=== PATIENT | female | born 1950 | race American Indian/Alaskan Native ===

== ENCOUNTER 2019-07-06 03:29 | Inpatient (IN) | payer MEDICARE ==
--- NOTE | 2019-07-06 04:38 | Emergency Department Report ---
<ALTAGRACIA RIVERA - Last Filed: 07/06/19 05:46> ED General Adult HPI - General Chief complaint: Weakness Stated complaint: LOSS OF CONSCIOUSNESS Time Seen by Provider: 07/06/19 03:46 Source: patient, EMS Mode of arrival: Ambulatory Limitations: No Limitations - History of Present Illness Initial comments: Patient presents to the emergency department via EMS with her family present for a chief complaint of difficulty arousing. Per the patient's daughter her mother had a blood transfusion yesterday at [facility] which she told them that she was having some nausea and she was given Phenergan and Benadryl. Since that time the daughter states her mom has been somnolent but arousable. -: Sudden Consistency: constant Improves with: none Worsens with: none Associated Symptoms: denies other symptoms Treatments Prior to Arrival: none - Related Data Home Medications Medication Instructions Recorded Confirmed Last Taken Aspirin [Adult Low Dose Aspirin EC] 81 mg PO DAILY 11/16/15 12/10/15 12/09/15 81mg Losartan [Cozaar] 100 mg PO QDAY 11/16/15 12/10/15 12/09/15 100mg Multivit-Min/FA/Lycopen/Lutein 1 tab PO DAILY 11/16/15 12/10/15 12/07/15 [Centrum Silver Tablet] 1 tab [place]-3/Dha/Epa/Fish Oil [Fish Oil 1 tab PO DAILY 11/16/15 12/10/15 12/09/15 [place]-3 EC 1,200 mg] 1 tab Vit D3/Folic Acid/B2/B6/B12 1 tab PO DAILY 11/16/15 12/10/15 12/09/15 [Folgard Tablet] 1 tab amLODIPine [Norvasc] 5 mg PO DAILY 11/16/15 12/10/15 12/09/15 5mg Allergies Allergy/AdvReac Type Severity Reaction Status Date / Time No Known Allergies Allergy Verified 07/26/14 22:47 ED Review of Systems Comment: All other systems reviewed and negative Constitutional: denies: chills, fever Eyes: denies: eye pain, eye discharge, vision change ENT: denies: ear pain, throat pain Respiratory: denies: cough, shortness of breath, wheezing Cardiovascular: denies: chest pain, palpitations Endocrine: no symptoms reported Gastrointestinal: denies: abdominal pain, nausea, diarrhea Genitourinary: denies: urgency, dysuria, discharge Musculoskeletal: denies: back pain, joint swelling, arthralgia Skin: denies: rash, lesions Neurological: denies: headache, weakness, paresthesias Psychiatric: denies: anxiety, depression Hematological/Lymphatic: denies: easy bleeding, easy bruising ED Past Medical Hx - Past Medical History Hx Hypertension: Yes Hx Diabetes: Yes Hx GERD: Yes Additional medical history: fibroids - Surgical History Additional Surgical History: Partial hysterectomy - Social History Smoking Status: Never Smoker Substance Use Type: None - Medications Home Medications: Home Medications Medication Instructions Recorded Confirmed Last Taken Type Aspirin [Adult Low Dose Aspirin EC] 81 mg PO DAILY 11/16/15 12/10/15 12/09/15 History 81mg Losartan [Cozaar] 100 mg PO QDAY 11/16/15 12/10/15 12/09/15 History 100mg Multivit-Min/FA/Lycopen/Lutein 1 tab PO DAILY 11/16/15 12/10/15 12/07/15 History [Centrum Silver Tablet] 1 tab [place]-3/Dha/Epa/Fish Oil [Fish Oil 1 tab PO DAILY 11/16/15 12/10/15 12/09/15 History [place]-3 EC 1,200 mg] 1 tab Vit D3/Folic Acid/B2/B6/B12 1 tab PO DAILY 11/16/15 12/10/15 12/09/15 History [Folgard Tablet] 1 tab amLODIPine [Norvasc] 5 mg PO DAILY 11/16/15 12/10/15 12/09/15 History 5mg ED Physical Exam - General Limitations: No Limitations General appearance: alert, in no apparent distress, obtunded (but easily arousable) - Head Head exam: Present: atraumatic, normocephalic - Eye Eye exam: Present: normal appearance, PERRL, EOMI - ENT ENT exam: Present: mucous membranes dry - Neck Neck exam: Present: normal inspection - Respiratory Respiratory exam: Present: normal lung sounds bilaterally. Absent: respiratory distress - Cardiovascular Cardiovascular Exam: Present: regular rate, normal rhythm. Absent: systolic murmur, diastolic murmur, rubs, gallop - GI/Abdominal GI/Abdominal exam: Present: soft, normal bowel sounds. Absent: distended, tenderness - Extremities Exam Extremities exam: Present: normal inspection - Back Exam Back exam: Present: normal inspection - Neurological Exam Neurological exam: Present: alert, oriented X3, CN II-XII intact. Absent: motor sensory deficit - Psychiatric Psychiatric exam: Present: normal affect, normal mood - Skin Skin exam: Present: warm, dry, intact, normal color. Absent: rash ED Medical Decision Making - Medical Decision Making It was noticed on the monitor that the patient's O2 sats dropped to 84% on room air. Daughter denies her mother using O2 at home ED Disposition Clinical Impression: Hypoxia, Altered mental status Disposition: DC- OP ADMIT IP TO THIS HOSP Condition: Stable Referrals: PRIMARY CARE, [Primary Care Provider] - 3-5 Days <BROCK SMITH - Last Filed: 07/06/19 14:51> ED Review of Systems ROS: Stated complaint: LOSS OF CONSCIOUSNESS Other details as noted in HPI ED Course Vital Signs 07/06/19 07/06/19 07/06/19 04:00 05:45 06:00 Temperature 98.4 F Pulse Rate 86 85 84 Respiratory 16 19 15 Rate Blood Pressure 140/81 140/81 Blood Pressure [Right] O2 Sat by Pulse 84 97 99 Oximetry 07/06/19 07/06/19 07/06/19 06:15 06:30 06:48 Temperature Pulse Rate 85 88 85 Respiratory 17 18 22 Rate Blood Pressure 147/94 147/94 146/90 Blood Pressure [Right] O2 Sat by Pulse 98 98 97 Oximetry 07/06/19 07/06/19 07/06/19 07:45 08:49 11:03 Temperature Pulse Rate 88 85 85 Respiratory 20 18 16 Rate Blood Pressure Blood Pressure 149/87 146/90 156/92 [Right] O2 Sat by Pulse 92 94 97 Oximetry 07/06/19 07/06/19 12:15 13:55 Temperature Pulse Rate 80 78 Respiratory 16 14 Rate Blood Pressure Blood Pressure 148/80 145/88 [Right] O2 Sat by Pulse 94 95 Oximetry - Reevaluation(s) Reevaluation #1: 07/06/19 14:48 I discussed the patient with Evelyne from chemistry lab about the delaying chemistry results. Evelyne stated that she is having trouble unwinding her chemistry due to high viscosity of the blood. She stated that she is waiting for a reagent from [facility]. ED Medical Decision Making - Lab Data Result diagrams: 07/06/19 12:51 - Medical Decision Making Ms Ortiz is 69 years old with a recent diagnosis of multiple myeloma. Patient signout to me by my colleague Dr. Rivera .Patient presents to the emergency department via EMS with her family present with a chief complaint of difficulty arousing. Per the patient's daughter her mother had a blood transfusion yesterday at [facility] which she told them that she was having some nausea and she was given Phenergan and Benadryl. Since that time the daughter states her mom has been somnolent but arousable. Patient evaluated by me multiple times. Patient is drowsy but able to answer question appropriately. Vital signs remained stable with oxygen saturation above 95% on 4 L of oxygen. Laboratory personnel having difficulty resulting how blood work due to high viscosity of her blood. I discussed the patient with Eevlyne from chemistry lab about the delaying chemistry results. Evelyne stated that she is having trouble unwinding her chemistry due to high viscosity of the blood. She stated that she is waiting for a reagent from [facility]. I discussed the patient with Dr. Campa for admission. Critical care attestation.: If time is entered above; I have spent that time in minutes in the direct care of this critically ill patient, excluding procedure time. ED Disposition Is pt being admited?: Yes
--- NOTE | 2019-07-06 05:48 | Cat Scan Report ---
CT HEAD WITHOUT CONTRAST INDICATION: ams TECHNIQUE: Axial slices were obtained through the head. Coronal and sagittal reformatted images were obtained. COMPARISON: None available. FINDINGS: There is no intracranial hemorrhage or extra-axial fluid collection. Ventricles, basilar cisterns, an d sulci appear within normal limits for age. There is no mass lesion or midline shift. No acute everette torial infarct is identified. Bone windows demonstrate no acute osseous abnormality. There is a small mucous retention cyst in the frontal sinus and small mucous retention cyst in the sphenoid sinus. TECHNIQUE: All CT scans at this facility use dose modulation, iterative reconstruction, automated ex posure control, weight based dosing, when appropriate, to reduce radiation dose to as low as reasonab ly achievable. IMPRESSION: 1. No acute intracranial abnormality. Signer Name: Larry Samuels MD Signed: 07/06/2019 5:44 AM Workstation Name: [id number]
--- NOTE | 2019-07-06 05:51 | XRay Report ---
CHEST 1 VIEW INDICATION / CLINICAL INFORMATION: hypoxia. COMPARISON: 11/17/2015 FINDINGS: SUPPORT DEVICES: None. HEART / MEDIASTINUM: There is prominence of the cardiac silhouette. There is prominence of the right hilum which is likely vascular LUNGS / PLEURA: There is bilateral venous congestion. There is bilateral pulmonary edema.. No pneumo thorax. ADDITIONAL FINDINGS: No significant additional findings. IMPRESSION: 1. There is bilateral pulmonary edema and venous congestion. There is prominence the cardiac silhouet te. No pneumothorax is seen. Right hilar prominence is likely vascular. Follow-up PA and lateral chest radiograph is recommended t o reevaluate in the next several weeks. Signer Name: Larry Samuels MD Signed: 07/06/2019 5:47 AM Workstation Name: [id number]
[2019-07-06 07:59] LABS: Partial Thromboplastin Time 42.4 Sec. (24.2-36.6)
[2019-07-06 08:05] LABS: INR 1.61 (0.87-1.13)
[2019-07-06 13:52] LABS: Hematocrit 23.4 % (30.3-42.9); Hemoglobin 7.6 gm/dl (10.1-14.3); Mean Corpuscular HGB Conc 33 % (30-34); Mean Corpuscular Volume 95 fl (79-97); Mean Platelet Volume 7.7 fl (6-12); Platelet Count 24 K/mm3 (140-440); Red Blood Count 2.47 M/mm3 (3.65-5.03); Red Cell Distribution Width 19.4 % (13.2-15.2)
[2019-07-06 15:22] LABS: Bacteria,Urine 2+ /HPF (Negative); Bilirubin,Urine NEG (Negative); Blood,Urine LG (Negative); Color,Urine Red (Yellow); Mucus,Urine FEW /HPF; Urobilinogen,Urine < 2.0 mg/dL (<2.0)
[2019-07-06 15:27] LABS: RBC,Urine > 182.0 /HPF (0.0-6.0)
[2019-07-06 15:43] LABS: Basophils % (Manual) 0 % (0.0-1.8); Eosinophils % (Manual) 0 % (0.0-4.3); Total Cells Counted 100
[2019-07-06 15:49] LABS: Anisocytosis 1+; Hypochromasia 2+; Macrocytosis 1+
[2019-07-06 15:52] LABS: Platelet Estimate Appears Decreased
--- NOTE | 2019-07-06 16:33 | History and Physical Report ---
History of Present Illness Date of examination: 07/06/19 Date of admission: 07/06/19 Chief complaint: Altered sensorium for one day History of present illness: Patient presents to the emergency department via EMS with her family present for a chief complaint of difficulty arousing. Per the patient's daughter her mother had a blood transfusion yesterday at [facility] . She had some nausea and was given Phenergan and Benadryl. Since that time the daughter states her mom has been somnolent but arousable.Patient gets blood transfusions for recurrent anemia.Patient lethargic but easily arosable. patient's O2 sats dropped to 84% on room air. Daughter denies her mother using O2 at home Past Medical History Hypertension Diabetes GERD Fibroids MM?? Surgical History Partial hysterectomy Social History Smoking Status: Never Smoker Substance Use Type: None Family History Htn Medications Home Medications: Home Medications Medication Instructions Recorded Confirmed Last Taken Type Aspirin [Adult Low Dose Aspirin EC] 81 mg PO DAILY 11/16/15 12/10/15 12/09/15 History 81mg Losartan [Cozaar] 100 mg PO QDAY 11/16/15 12/10/15 12/09/15 History 100mg Multivit-Min/FA/Lycopen/Lutein 1 tab PO DAILY 11/16/15 12/10/15 12/07/15 History [Centrum Silver Tablet] 1 tab [place]-3/Dha/Epa/Fish Oil [Fish Oil 1 tab PO DAILY 11/16/15 12/10/15 12/09/15 History [place]-3 EC 1,200 mg] 1 tab Vit D3/Folic Acid/B2/B6/B12 1 tab PO DAILY 11/16/15 12/10/15 12/09/15 History [Folgard Tablet] 1 tab amLODIPine [Norvasc] 5 mg PO DAILY 11/16/15 12/10/15 12/09/15 History 5mg Review of Systems Comment: All other systems reviewed and negative Constitutional: denies: chills, fever Eyes: denies: eye pain, eye discharge, vision change ENT: denies: ear pain, throat pain Respiratory: denies: cough, shortness of breath, wheezing Cardiovascular: denies: chest pain, palpitations Endocrine: no symptoms reported Gastrointestinal: denies: abdominal pain, nausea, diarrhea Genitourinary: denies: urgency, dysuria, discharge Musculoskeletal: denies: back pain, joint swelling, arthralgia Skin: denies: rash, lesions Neurological: denies: headache, weakness, paresthesias Psychiatric: denies: anxiety, depression Hematological/Lymphatic: denies: easy bleeding, easy bruising Medications and Allergies Allergies Allergy/AdvReac Type Severity Reaction Status Date / Time No Known Allergies Allergy Verified 07/26/14 22:47 Home Medications Medication Instructions Recorded Confirmed Last Taken Type Aspirin [Adult Low Dose Aspirin EC] 81 mg PO DAILY 11/16/15 07/06/19 12/09/15 History 81mg Losartan [Cozaar] 100 mg PO QDAY 11/16/15 07/06/19 12/09/15 History 100mg Multivit-Min/FA/Lycopen/Lutein 1 tab PO DAILY 11/16/15 07/06/19 12/07/15 History [Centrum Silver Tablet] 1 tab [place]-3/Dha/Epa/Fish Oil [Fish Oil 1 tab PO DAILY 11/16/15 07/06/19 12/09/15 History [place]-3 EC 1,200 mg] 1 tab Vit D3/Folic Acid/B2/B6/B12 1 tab PO DAILY 11/16/15 07/06/19 12/09/15 History [Folgard Tablet] 1 tab amLODIPine [Norvasc] 5 mg PO DAILY 11/16/15 07/06/19 12/09/15 History 5mg Exam - Constitutional Vitals: Temp Pulse Resp BP Pulse Ox 98.4 F 82 17 143/88 93 07/06/19 04:00 07/06/19 15:08 07/06/19 15:08 07/06/19 15:08 07/06/19 15:08 General appearance: Present: no acute distress, well-nourished - EENT Eyes: Present: PERRL ENT: hearing intact, clear oral mucosa - Neck Neck: Present: supple, normal ROM - Respiratory Respiratory effort: normal Respiratory: bilateral: CTA - Cardiovascular Heart rate: 78 Rhythm: regular Heart Sounds: Present: S1 & S2. Absent: rub, click - Extremities Extremities: no ischemia, pulses intact, pulses symmetrical, No edema Peripheral Pulses: within normal limits - Abdominal General gastrointestinal: Present: soft, non-tender, non-distended, normal bowel sounds Female genitourinary: Present: normal - Integumentary Integumentary: Present: clear, warm, dry - Musculoskeletal Musculoskeletal: generalized weakness - Psychiatric Psychiatric: other (Lethargic) - Neurologic Neurologic: CNII-XII intact, moves all extremities - Allied Health Allied health notes reviewed: nursing, case management Results - Labs CBC & Chem 7: 07/06/19 12:51 Labs: Laboratory Last Values WBC 4.0 K/mm3 (4.5-11.0) L 07/06/19 12:51 RBC 2.47 M/mm3 (3.65-5.03) L 07/06/19 12:51 Hgb 7.6 gm/dl (10.1-14.3) L 07/06/19 12:51 Hct 23.4 % (30.3-42.9) L 07/06/19 12:51 MCV 95 fl (79-97) 07/06/19 12:51 MCH 31 pg (28-32) 07/06/19 12:51 MCHC 33 % (30-34) 07/06/19 12:51 RDW 19.4 % (13.2-15.2) H 07/06/19 12:51 Plt Count 24 K/mm3 (140-440) L 07/06/19 12:51 Lymph % (Auto) Etcher Machine 07/06/19 12:51 [place] % (Auto) Etcher Machine 07/06/19 12:51 Eos % (Auto) Etcher Machine 07/06/19 12:51 Baso % (Auto) Etcher Machine 07/06/19 12:51 Lymph # Etcher Machine 07/06/19 12:51 [place] # Etcher Machine 07/06/19 12:51 Eos # Etcher Machine 07/06/19 12:51 Baso # Etcher Machine 07/06/19 12:51 Add Manual Diff Complete 07/06/19 12:51 Total Counted 100 07/06/19 12:51 Seg Neutrophils % Etcher Machine 07/06/19 12:51 Seg Neuts % (Manual) 74.0 % (40.0-70.0) H 07/06/19 12:51 0 % 07/06/19 12:51 20.0 % (13.4-35.0) 07/06/19 12:51 Reactive Lymphs % (Man) 0 % 07/06/19 12:51 6.0 % (0.0-7.3) 07/06/19 12:51 0 % (0.0-4.3) 07/06/19 12:51 0 % (0.0-1.8) 07/06/19 12:51 0 % 07/06/19 12:51 0 % 07/06/19 12:51 0 % 07/06/19 12:51 0 % 07/06/19 12:51 Nucleated RBC % Not Reportable 07/06/19 12:51 Seg Neutrophils # Etcher Machine 07/06/19 12:51 Seg Neutrophils # Man 3.0 K/mm3 (1.8-7.7) 07/06/19 12:51 Band Neutrophils # 0.0 K/mm3 07/06/19 12:51 0.8 K/mm3 (1.2-5.4) L 07/06/19 12:51 Abs React Lymphs (Man) 0.0 K/mm3 07/06/19 12:51 0.2 K/mm3 (0.0-0.8) 07/06/19 12:51 0.0 K/mm3 (0.0-0.4) 07/06/19 12:51 0.0 K/mm3 (0.0-0.1) 07/06/19 12:51 0.0 K/mm3 07/06/19 12:51 0.0 K/mm3 07/06/19 12:51 0.0 K/mm3 07/06/19 12:51 Blast Cells # 0.0 K/mm3 07/06/19 12:51 Hypersegmented Neuts Not Reportable 07/06/19 12:51 Hyposegmented Neuts Not Reportable 07/06/19 12:51 Hypogranular Neuts Not Reportable 07/06/19 12:51 Not Reportable 07/06/19 12:51 Not Reportable 07/06/19 12:51 Not Reportable 07/06/19 12:51 Not Reportable 07/06/19 12:51 Not Reportable 07/06/19 12:51 Not Reportable 07/06/19 12:51 Appears decreased 07/06/19 12:51 Not Reportable 07/06/19 12:51 Plt Clumps, EDTA Not Reportable 07/06/19 12:51 Not Reportable 07/06/19 12:51 Not Reportable 07/06/19 12:51 Not Reportable 07/06/19 12:51 Plt Morphology Comment Not Reportable 07/06/19 12:51 RBC Morphology Not Reportable 07/06/19 12:51 Dimorphic RBCs Not Reportable 07/06/19 12:51 Not Reportable 07/06/19 12:51 2+ 07/06/19 12:51 Not Reportable 07/06/19 12:51 1+ 07/06/19 12:51 Not Reportable 07/06/19 12:51 1+ 07/06/19 12:51 Not Reportable 07/06/19 12:51 Not Reportable 07/06/19 12:51 Not Reportable 07/06/19 12:51 Not Reportable 07/06/19 12:51 Not Reportable 07/06/19 12:51 Not Reportable 07/06/19 12:51 Not Reportable 07/06/19 12:51 Not Reportable 07/06/19 12:51 Not Reportable 07/06/19 12:51 Not Reportable 07/06/19 12:51 Not Reportable 07/06/19 12:51 Not Reportable 07/06/19 12:51 Not Reportable 07/06/19 12:51 Acanthocytes (Spur) Not Reportable 07/06/19 12:51 Rouleaux 2+ 07/06/19 12:51 Not Reportable 07/06/19 12:51 Not Reportable 07/06/19 12:51 Not Reportable 07/06/19 12:51 Not Reportable 07/06/19 12:51 Hem Pathologist Commnt Sent to pathology 07/06/19 12:51 PT 18.8 Sec. (12.2-14.9) H 07/06/19 07:18 INR 1.61 (0.87-1.13) H 07/06/19 07:18 APTT 42.4 Sec. (24.2-36.6) H 07/06/19 07:18 935.80 ng/mlDDU (0-234) H 07/06/19 07:18 POC ABG pH 7.427 (7.35-7.45) 07/06/19 05:24 POC ABG pCO2 31.7 (35-45) L 07/06/19 05:24 POC ABG pO2 59 (80-105) L 07/06/19 05:24 POC ABG HCO3 20.8 (22-26 mml/L) 07/06/19 05:24 POC ABG Total CO2 22 (23-27mmol/L) 07/06/19 05:24 POC ABG O2 Sat 91 07/06/19 05:24 POC ABG Base Excess -4 ((-2) - (+3)mmol/L) 07/06/19 05:24 21 % 07/06/19 05:24 Red (Yellow) 07/06/19 14:47 Cloudy (Clear) 07/06/19 14:47 5.0 (5.0-7.0) 07/06/19 14:47 Ur Specific Harmony 1.013 (1.003-1.030) 07/06/19 14:47 100 mg/dl mg/dL (Negative) 07/06/19 14:47 Neg mg/dL (Negative) 07/06/19 14:47 Neg mg/dL (Negative) 07/06/19 14:47 Lg (Negative) 07/06/19 14:47 Neg (Negative) 07/06/19 14:47 Neg (Negative) 07/06/19 14:47 < 2.0 mg/dL (<2.0) 07/06/19 14:47 Ur Leukocyte Esterase Tr (Negative) 07/06/19 14:47 22.0 /HPF (0.0-6.0) H 07/06/19 14:47 > 182.0 /HPF (0.0-6.0) 07/06/19 14:47 U Epithel Cells (Auto) 1.0 /HPF (0-13.0) 07/06/19 14:47 2+ /HPF (Negative) 07/06/19 14:47 Few /HPF 07/06/19 14:47 3+ /HPF 07/06/19 14:47 - Imaging and Cardiology EKG: report reviewed Chest x-ray: report reviewed Imaging and Cardiology: CXR IMPRESSION: 1. There is bilateral pulmonary edema and venous congestion. There is prominence the cardiac silhouette. Assessment and Plan Advance Directives: Yes (Full code) VTE prophylaxis?: Chemical Plan of care discussed with patient/family: Yes - Patient Problems (1) Acute respiratory failure Current Visit: Yes Status: Acute Qualifiers: Respiratory failure complication: hypoxia Qualified Code(s): J96.01 - Acute respiratory failure with hypoxia Plan to address problem: Sec to Pulmonary venous congestion Lasix x1 dose Probably sec to Blood transfusion and volume overload No history of CHF ECHO for EF (2) Acute encephalopathy Current Visit: Yes Status: Acute Plan to address problem: Secondary to Benadryl and Phenergan (3) HTN (hypertension) Current Visit: Yes Status: Chronic Qualifiers: Hypertension type: essential hypertension Qualified Code(s): I10 - Essential (primary) hypertension Plan to address problem: Cont antihypertensives (4) T2DM (type 2 diabetes mellitus) Current Visit: Yes Status: Chronic Qualifiers: Diabetes mellitus oil heaterman insulin use: unspecified oil heaterman insulin use status Plan to address problem: Coverage for now Ceck A1c (5) Anemia Current Visit: Yes Status: Acute Qualifiers: Anemia type: unspecified type Qualified Code(s): D64.9 - Anemia, unspecified Plan to address problem: Transfuse one unit of PRBC (6) DVT prophylaxis Current Visit: Yes Status: Acute Plan to address problem: On Lovenox and GI prophylaxis
[2019-07-06] MEDS ORDERED: SODIUM CHLORIDE FLUSH SYRINGE 10 ML IV PRN ×2 (16:40→16:41)
[2019-07-06] MEDS ORDERED: TYLENOL PO PRN ×2 (16:40→16:41)
[2019-07-06] MEDS ORDERED: ZOFRAN IV PRN ×2 (16:40→16:41)
[2019-07-06] MEDS ORDERED: D5NS 1,000 ML IV SCH (17:00)
[2019-07-06] MEDS: ROCEPHIN/NS 1 GM/50 ML 1 GM/50 ML BAG IV SCH (17:00)
[2019-07-06] MEDS ORDERED: NACL 0.9% 500 ML 500 ML IV ONE (17:00)
[2019-07-06] MEDS: DUONEB *Not for PRN Use IH SCH (21:32)
[2019-07-06] MEDS ORDERED: SODIUM CHLORIDE FLUSH SYRINGE 10 ML IV SCH (22:00)
[2019-07-06] MEDS: SODIUM CHLORIDE FLUSH SYRINGE 10 ML IV SCH (22:07)
--- NOTE | 2019-07-07 07:37 | Progress Note ---
Assessment and Plan Assessment and plan: Patient is a 69 yo woman with a history of hypertension, DM type 2, GERD and unspecific Anemia with recurrent blood transfusions who presents with AMS/difficulty arousing. Per the patient's daughter her mother had a blood transfusion a day prior to coming here at [facility] . She had some nausea and was given Phenergan and Benadryl. Since that time the daughter states her mom has been somnolent but arousable.Patient gets blood transfusions for recurrent anemia.Patient lethargic but easily arosable. patient's O2 sats dropped to 84% on room air. Daughter denies her mother using O2 at home * CXR IMPRESSION: 1. There is bilateral pulmonary edema and venous congestion. There is prominence the cardiac silhouette. Acute hypoxice respiratory failure with p.edema: treated with iv lasix, check ECHO Acute metabolic encephalopathy HTN (hypertension), Cont antihypertensives T2DM (type 2 diabetes mellitus): SSI Coverage for now, Ceck A1c Pulmonary edema, suspect acute heart failure, diastolic: treat with iv lasix Pancytopenia with plt 24 and anemia: stat CMP, consulted Heme/Onc Severe thrombocytopenia: consulted Heme/onc UTI: on iv rocephin Severe malnutrition: consult mold filling operator Hypercalcemia: consulted Heme/Onc Hypernatremia: consulted Communication Equipment Mechanic Hypokalemia: replete and monitor cmp daily CCT 33 minutes I ordered stat CMP History Interval history: Patient was seen and examined. Follow-up on current diagnosis of AMS and hypoxic. No overnight events reported to me. Patient denies any chest pain, shortness breath, nausea/vomiting or severe headaches. Imaging, nursing note, chart, labs and old chart reviewed. Discussed with patient. Patient was shwetaa alvaro. After I introduced myself, I asked her the reason she had blood transfusion. She rudely stated, "I don't know, you tell me, you're the doctor." This is my first time meeting patient. Hospitalist Physical - Physical exam Narrative exam: Gen: WDWN, NAD, Awake, Alert, Orientated HEENT: NCAT, EOMI, PERRL, OP Clear Neck: supple, no adenopathy, no thyromegaly, no JVD CVS/Heart: RRR, normal S1S2, pulses present bilaterally Chest/Lungs: diminished B, Symmetrical chest expansion, good air entry bilaterally GI/Abdomen: soft, NTND, good bowel sounds, no guarding or rebound /Bladder: no suprapubic tenderness, no CVA or paraspinal tenderness Extermity/Skin: +ble leg edema, no obvious rash MSK: FROM x 4 Neuro: CN 2-12 grossly intact, no new focal deficits Psych: rude - Constitutional Vitals: Temp Pulse Resp BP Pulse Ox 97.7 F 83 18 140/82 85 07/07/19 01:46 07/07/19 01:46 07/07/19 01:46 07/07/19 01:46 07/07/19 01:46 General appearance: Present: no acute distress, well-nourished Results - Labs CBC & Chem 7: 07/07/19 06:56 07/07/19 07:04 Labs: Laboratory Last Values WBC 4.0 K/mm3 (4.5-11.0) L 07/06/19 12:51 RBC 2.47 M/mm3 (3.65-5.03) L 07/06/19 12:51 Hgb 7.6 gm/dl (10.1-14.3) L 07/06/19 12:51 Hct 23.4 % (30.3-42.9) L 07/06/19 12:51 MCV 95 fl (79-97) 07/06/19 12:51 MCH 31 pg (28-32) 07/06/19 12:51 MCHC 33 % (30-34) 07/06/19 12:51 RDW 19.4 % (13.2-15.2) H 07/06/19 12:51 Plt Count 24 K/mm3 (140-440) L 07/06/19 12:51 Lymph % (Auto) Assistant Head Cashier 07/06/19 12:51 [place] % (Auto) Assistant Head Cashier 07/06/19 12:51 Eos % (Auto) Assistant Head Cashier 07/06/19 12:51 Baso % (Auto) Assistant Head Cashier 07/06/19 12:51 Lymph # Assistant Head Cashier 07/06/19 12:51 [place] # Assistant Head Cashier 07/06/19 12:51 Eos # Assistant Head Cashier 07/06/19 12:51 Baso # Assistant Head Cashier 07/06/19 12:51 Add Manual Diff Complete 07/06/19 12:51 Total Counted 100 07/06/19 12:51 Seg Neutrophils % Assistant Head Cashier 07/06/19 12:51 Seg Neuts % (Manual) 74.0 % (40.0-70.0) H 07/06/19 12:51 0 % 07/06/19 12:51 20.0 % (13.4-35.0) 07/06/19 12:51 Reactive Lymphs % (Man) 0 % 07/06/19 12:51 6.0 % (0.0-7.3) 07/06/19 12:51 0 % (0.0-4.3) 07/06/19 12:51 0 % (0.0-1.8) 07/06/19 12:51 0 % 07/06/19 12:51 0 % 07/06/19 12:51 0 % 07/06/19 12:51 0 % 07/06/19 12:51 Nucleated RBC % Not Reportable 07/06/19 12:51 Seg Neutrophils # Assistant Head Cashier 07/06/19 12:51 Seg Neutrophils # Man 3.0 K/mm3 (1.8-7.7) 07/06/19 12:51 Band Neutrophils # 0.0 K/mm3 07/06/19 12:51 0.8 K/mm3 (1.2-5.4) L 07/06/19 12:51 Abs React Lymphs (Man) 0.0 K/mm3 07/06/19 12:51 0.2 K/mm3 (0.0-0.8) 07/06/19 12:51 0.0 K/mm3 (0.0-0.4) 07/06/19 12:51 0.0 K/mm3 (0.0-0.1) 07/06/19 12:51 0.0 K/mm3 07/06/19 12:51 0.0 K/mm3 07/06/19 12:51 0.0 K/mm3 07/06/19 12:51 Blast Cells # 0.0 K/mm3 07/06/19 12:51 Hypersegmented Neuts Not Reportable 07/06/19 12:51 Hyposegmented Neuts Not Reportable 07/06/19 12:51 Hypogranular Neuts Not Reportable 07/06/19 12:51 Not Reportable 07/06/19 12:51 Not Reportable 07/06/19 12:51 Not Reportable 07/06/19 12:51 Not Reportable 07/06/19 12:51 Not Reportable 07/06/19 12:51 Not Reportable 07/06/19 12:51 Appears decreased 07/06/19 12:51 Not Reportable 07/06/19 12:51 Plt Clumps, EDTA Not Reportable 07/06/19 12:51 Not Reportable 07/06/19 12:51 Not Reportable 07/06/19 12:51 Not Reportable 07/06/19 12:51 Plt Morphology Comment Not Reportable 07/06/19 12:51 RBC Morphology Not Reportable 07/06/19 12:51 Dimorphic RBCs Not Reportable 07/06/19 12:51 Not Reportable 07/06/19 12:51 2+ 07/06/19 12:51 Not Reportable 07/06/19 12:51 1+ 07/06/19 12:51 Not Reportable 07/06/19 12:51 1+ 07/06/19 12:51 Not Reportable 07/06/19 12:51 Not Reportable 07/06/19 12:51 Not Reportable 07/06/19 12:51 Not Reportable 07/06/19 12:51 Not Reportable 07/06/19 12:51 Not Reportable 07/06/19 12:51 Not Reportable 07/06/19 12:51 Not Reportable 07/06/19 12:51 Not Reportable 07/06/19 12:51 Not Reportable 07/06/19 12:51 Not Reportable 07/06/19 12:51 Not Reportable 07/06/19 12:51 Not Reportable 07/06/19 12:51 Acanthocytes (Spur) Not Reportable 07/06/19 12:51 Rouleaux 2+ 07/06/19 12:51 Not Reportable 07/06/19 12:51 Not Reportable 07/06/19 12:51 Not Reportable 07/06/19 12:51 Not Reportable 07/06/19 12:51 Hem Pathologist Commnt Sent to pathology 07/06/19 12:51 PT 18.8 Sec. (12.2-14.9) H 07/06/19 07:18 INR 1.61 (0.87-1.13) H 07/06/19 07:18 APTT 42.4 Sec. (24.2-36.6) H 07/06/19 07:18 935.80 ng/mlDDU (0-234) H 07/06/19 07:18 POC ABG pH 7.427 (7.35-7.45) 07/06/19 05:24 POC ABG pCO2 31.7 (35-45) L 07/06/19 05:24 POC ABG pO2 59 (80-105) L 07/06/19 05:24 POC ABG HCO3 20.8 (22-26 mml/L) 07/06/19 05:24 POC ABG Total CO2 22 (23-27mmol/L) 07/06/19 05:24 POC ABG O2 Sat 91 07/06/19 05:24 POC ABG Base Excess -4 ((-2) - (+3)mmol/L) 07/06/19 05:24 21 % 07/06/19 05:24 Red (Yellow) 07/06/19 14:47 Cloudy (Clear) 07/06/19 14:47 5.0 (5.0-7.0) 07/06/19 14:47 Ur Specific [place] 1.013 (1.003-1.030) 07/06/19 14:47 100 mg/dl mg/dL (Negative) 07/06/19 14:47 Neg mg/dL (Negative) 07/06/19 14:47 Neg mg/dL (Negative) 07/06/19 14:47 Lg (Negative) 07/06/19 14:47 Neg (Negative) 07/06/19 14:47 Neg (Negative) 07/06/19 14:47 < 2.0 mg/dL (<2.0) 07/06/19 14:47 Ur Leukocyte Esterase Tr (Negative) 07/06/19 14:47 22.0 /HPF (0.0-6.0) H 07/06/19 14:47 > 182.0 /HPF (0.0-6.0) 07/06/19 14:47 U Epithel Cells (Auto) 1.0 /HPF (0-13.0) 07/06/19 14:47 2+ /HPF (Negative) 07/06/19 14:47 Few /HPF 07/06/19 14:47 3+ /HPF 07/06/19 14:47 Blood Type O POSITIVE 07/06/19 Unknown Antibody Screen Positive 07/06/19 Unknown Crossmatch See Detail 07/06/19 Unknown Active Medications - Current Medications Current Medications: Generic Name Dose Route Start Last Admin Trade Name Freq PRN Reason Stop Dose Admin Acetaminophen 650 mg 07/06/19 16:40 Tylenol PO Q4H PRN Pain MILD(1-3)/Fever >100.5/ALTMAN Albuterol/Ipratropium 1 ampul 07/06/19 20:00 07/06/19 21:32 Duoneb *Not For Prn Use* IH 1 ampul QIDRT JESUS Administration Furosemide 40 mg 07/07/19 07:00 Lasix IV Q24H JESUS Dextrose/Sodium Chloride 1,000 mls @ 100 mls/hr 07/06/19 17:00 07/07/19 03:07 D5ns IV 100 mls/hr DIRECT JESUS Administration Ceftriaxone Sodium 1 gm in 50 mls @ 100 mls/hr 07/06/19 17:00 07/06/19 17:00 Rocephin/Ns 1 Gm/50 Ml IV 100 mls/hr Q24HR JESUS Administration Protocol Ondansetron HCl 4 mg 07/06/19 16:40 Zofran IV Q8H PRN Nausea And Vomiting Pneumococcal Polyvalent Vaccine 0.5 ml 07/07/19 12:00 Pneumovax 23 IM 07/07/19 12:01 .ONCE ONE Sodium Chloride 10 ml 07/06/19 22:00 07/06/19 22:07 Sodium Chloride Flush Syringe 10 Ml IV 10 ml BID JESUS Administration Sodium Chloride 10 ml 07/06/19 16:40 Sodium Chloride Flush Syringe 10 Ml IV PRN PRN LINE FLUSH
[2019-07-07 08:07] LABS: Hematocrit 21.3 % (30.3-42.9); Hemoglobin 6.9 gm/dl (10.1-14.3); Mean Corpuscular HGB Conc 33 % (30-34); Mean Corpuscular Volume 96 fl (79-97); Red Blood Count 2.21 M/mm3 (3.65-5.03); Red Cell Distribution Width 19.5 % (13.2-15.2)
--- NOTE | 2019-07-07 08:33 | Event Note ---
Date: 07/07/19 [id number]
[2019-07-07] MEDS: ROCEPHIN/NS 1 GM/50 ML 1 GM/50 ML BAG IV SCH (09:56)
[2019-07-07] MEDS: LASIX IV SCH (09:56)
[2019-07-07] MEDS: SODIUM CHLORIDE FLUSH SYRINGE 10 ML IV SCH ×2 (09:57→22:12)
[2019-07-07 10:36] LABS: Anisocytosis 1+; Basophils % (Manual) 0 % (0.0-1.8); Eosinophils % (Manual) 0 % (0.0-4.3); Platelet Estimate Consistent w Auto; Rouleaux 1+; Total Cells Counted 100
[2019-07-07] MEDS ORDERED: K-DUR PO ONE (11:00)
[2019-07-07 11:02] LABS: Platelet Count 11 K/mm3 (140-440)
[2019-07-07] MEDS: D5W 1,000 ML IV SCH ×2 (11:32→23:28)
--- NOTE | 2019-07-07 11:42 | Consultation ---
History of Present Illness - History of Present Illness Thank you for the consultation ! Patient was evaluated today My assessment and plan are as follows; Renal failure current creatinine is around 1.8, will order workup of renal julienne lure, there is no emergent indication for renal replacement therapy in this case for now Etiology of renal failure appears to be unclear however patient is 69-year-old may have underlying chronic kidney disease, it was also noted to be hypoxic oxygen saturation 84%? ATN,2016 creatinine was 0.9 she has recently been diagnosed with myeloma, so quite likely her renal failure partly could be resulting from multiple myeloma as well, we need to find out from oncology about her baseline creatinine multiple underlying comorbidities including diabetes mellitus type 2, hypertension, which puts her at higher risk for progression of renal failure Metabolic acidosis: Bicarbonate currently 15 check lactic acid level as well Elevated proBNP/noted to have pulmonary edema/bilateral pulmonary vascular leann estion Admitted with encephalopathy: Etiology multifactorial Patient has been more somnolent ever since packed red blood cell transfusion History of anemia requiring periodic blood transfusion Hypoxemia oxygen saturation had dropped down to 84% Hypokalemia mild potassium is around 3.0, equinus replacement and follow Severe hypernatremia requires correction will order labs Hypocalcemia in the setting of , multiple myeloma, to find out what medication she is getting from her oncologist Abnormal liver enzyme AST SGOT elevated Proteinuria 100 mg, in the random urine specimen Patient noted to have hematuria pyuria 2+ bacteria and yeast in the urine rule out urinary tract infection, [place] to patient and daughter asymptomatic Pancytopenia, severe thrombocytopenia, hematology following, she is being followed by Dr. Lux for myeloma Will need to review his outside medical records Patient as well as her daughter were adequately counseled and educated regarding multiple renal related issues. Renal prognosis remains guarded at this time All renal related questions were answered and simple Pashto pertinent lab studies as well as imaging results were also discussed with patient We will continue to follow and make recommendations from renal standpoint. Thank you for the consultation Author: Ivan Vidal M.D. [facility], [address] [place] [address] Tel; [phone] Source of information: From patient History of present illness Patient is a 69-year-old -[place] female who has recently been diagnosed with myeloma and is currently being followed by Dr. Lux, V, hematology oncology, patient is a very poor historian and so is her daughter at the bedside, have been told to have renal insufficiency but then not sure why the degree and severity. According to the current record patient has had blood transfusion yesterday at [facility] subsequently was having nausea and was given Phenergan and Benadryl which made her very sleepy she denies having any fevers chills, and patient has markedly improved She has been admitted here with current creatinine of 1.8 in the setting of multiple myeloma patient was also noted to have hypoxemia pulse ox was around 84%, patient wants to be transferred back to [facility], she came in here because of 911 call, and was brought to the nearest hospital Review of the old records shows in 2016 her creatinine was 0.9 Past medical history significant for Hypertension Multiple myeloma Anemia Current allergies: None Home medication profile medication: Reviewed Social history/family history: Reviewed Review of system: Fatigue weakness recent diagnosis of multiple myeloma Patient was also short of breath She has no complaints of dysuria burning frequency urgency of urination All other review of system Physical examination Vitals: Reviewed General: No acute distress HEENT: Oral mucosa moist no pallor or icterus Neck: Supple without any JVD thyromegaly or nodular mass Chest: Clear to auscultation, anteriorly, posteriorly has few basilar crackles Heart: Regular rate and rhythm S1-S2 heard no S3-S4 Abdomen: Soft nontender, bowel sounds present no renal bruit no suprapubic masses no CVA tenderness noted Extremity: Minimal edema dry skin no peripheral cyanosis Endocrine: Thyroid not enlarged Psychiatric: No agitation and aggression noted Musculoskeletal: No joint effusion noted Labs and x-rays: Reviewed from this admission Medications and Allergies Allergies Allergy/AdvReac Type Severity Reaction Status Date / Time No Known Allergies Allergy Verified 07/26/14 22:47 Home Medications Medication Instructions Recorded Confirmed Last Taken Type Aspirin [Adult Low Dose Aspirin EC] 81 mg PO DAILY 11/16/15 07/06/19 12/09/15 History 81mg Losartan [Cozaar] 100 mg PO QDAY 11/16/15 07/06/19 12/09/15 History 100mg Multivit-Min/FA/Lycopen/Lutein 1 tab PO DAILY 11/16/15 07/06/19 12/07/15 History [Centrum Silver Tablet] 1 tab [place]-3/Dha/Epa/Fish Oil [Fish Oil 1 tab PO DAILY 11/16/15 07/06/19 12/09/15 History [place]-3 EC 1,200 mg] 1 tab Vit D3/Folic Acid/B2/B6/B12 1 tab PO DAILY 11/16/15 07/06/19 12/09/15 History [Folgard Tablet] 1 tab amLODIPine [Norvasc] 5 mg PO DAILY 11/16/15 07/06/19 12/09/15 History 5mg Active Meds: Active Medications Acetaminophen (Tylenol) 650 mg PO Q4H PRN PRN Reason: Pain MILD(1-3)/Fever >100.5/ALTMAN Albuterol/Ipratropium (Duoneb *Not For Prn Use*) 1 ampul IH QIDRT [facility] Last Admin: 07/06/19 21:32 Dose: 1 ampul Documented by: Furosemide (Lasix) 40 mg IV Q24H [facility] Last Admin: 07/07/19 09:56 Dose: 40 mg Documented by: Ceftriaxone Sodium (Rocephin/Ns 1 Gm/50 Ml) 1 gm in 50 mls @ 100 mls/hr IV Q24HR [facility]; Protocol Last Admin: 07/07/19 09:56 Dose: 100 mls/hr Documented by: Dextrose (D5w) 1,000 mls @ 75 mls/hr IV DIRECT [facility] Last Admin: 07/07/19 11:32 Dose: 75 mls/hr Documented by: Ondansetron HCl (Zofran) 4 mg IV Q8H PRN PRN Reason: Nausea And Vomiting Pneumococcal Polyvalent Vaccine (Pneumovax 23) 0.5 ml IM .ONCE ONE Stop: 07/07/19 12:01 Last Admin: 07/07/19 11:31 Dose: 0.5 ml Documented by: Sodium Chloride (Sodium Chloride Flush Syringe 10 Ml) 10 ml IV BID [facility] Last Admin: 07/07/19 09:57 Dose: 10 ml Documented by: Sodium Chloride (Sodium Chloride Flush Syringe 10 Ml) 10 ml IV PRN PRN PRN Reason: LINE FLUSH Exam - Vital Signs Vital signs: Vital Signs Temp Pulse Resp Pulse Ox 98.4 F 86 16 84 07/06/19 04:00 07/06/19 04:00 07/06/19 04:00 07/06/19 04:00 Results - Lab Results 07/08/19 05:58 07/07/19 07:04 Most recent lab results Calcium 6.6 mg/dL (8.4-10.2) L 07/07/19 07:04
[2019-07-07] MEDS ORDERED: PNEUMOVAX 23 IM ONE (12:00)
--- NOTE | 2019-07-07 13:31 | Nuclear Medicine Report ---
V/Q Scan HISTORY: Acute hypoxia. TECHNIQUE: Patient was given 10.2 mCi of xenon and 5 mCi of technetium MAA. COMPARISON: Chest x-ray from yesterday FINDINGS: Cardiomegaly accounts for photopenia within the left lung base. No appreciable mismatch be tween ventilation and perfusion imaging. IMPRESSION: Low probability for PTE. Signer Name: Eric Lew MD Signed: 07/07/2019 1:27 PM Workstation Name: [id number]
[2019-07-07 16:24] LABS: Blood Urea Nitrogen 39 mg/dL (7-17)
[2019-07-07 16:25] LABS: BUN/Creatinine Ratio 22
[2019-07-07 16:26] LABS: Calcium 6.6 mg/dL (8.4-10.2)
[2019-07-07 16:27] LABS: Alanine Aminotransferase 342 units/L (7-56)
[2019-07-07 16:28] LABS: Albumin 1.5 g/dL (3.9-5)
[2019-07-07 16:29] LABS: Hemolysis Index 39
[2019-07-07] MEDS: DUONEB *Not for PRN Use IH SCH ×4 (17:40→20:38)
[2019-07-08] MEDS ORDERED: NACL 0.9% 500 ML 500 ML ONE (01:15)
--- NOTE | 2019-07-08 03:17 | Consultation ---
REFERRED BY: Dr. Campa/Dr. Tee. REASON FOR CONSULTATION: Anemia, leukopenia and thrombocytopenia. HISTORY OF PRESENT ILLNESS: I saw the patient, a 69-year-old female, in the medical floor. As per the information, the patient was at [facility] and received transfusion support. At that time, Phenergan and Benadryl was given and after that the patient has been somnolent, but arousable. The patient has been getting blood transfusion periodically. At this time, the patient is alert, awake. History of smoking is present. History of daily alcohol use is present. At this time, no headache, no visual disturbances, no ear discharge, no chest pain, no palpitations, no vomiting, no diarrhea, no dysuria. PAST MEDICAL HISTORY: Hypertension, diabetes, GERD, fibroids and question of multiple myeloma, details not clear. SURGICAL HISTORY: Hysterectomy. SOCIAL HISTORY: The patient claims to be smoking and has alcohol usage. FAMILY HISTORY: Hypertension. HOME MEDICATIONS: Include amlodipine, aspirin, losartan, multivitamin, fish oil, vitamin D. PHYSICAL EXAMINATION: VITAL SIGNS: Temperature 98, pulse 74, respirations 18, BP 149/91. HEENT: Pallor present, no icterus. NECK: No neck lymph nodes. HEART: S1, S2. LUNGS: Clear to auscultation. ABDOMEN: Soft. EXTREMITIES: No calf tenderness. NEUROLOGIC: Alert, awake, answers simple questions. LABORATORY DATA: White cell was 4, now 1.3; hemoglobin 7.6, now 6.9; platelet 24, now 11. PT, PTT elevated. D-dimer is elevated. Potassium 3, creatinine 1.8, calcium 6.6, bilirubin 0.6, AST 303. BNP high at 15,000. ASSESSMENT AND PLAN: 1. Anemia. MCV is not low. This may be secondary to abnormal liver function test and note there is a mention of question of multiple myeloma. We will try to get more information. At this time, the patient has pancytopenia. The calcium is not elevated; in fact, it is low. Creatinine is slightly abnormal. 2. Normocytic anemia. We will do deficiency workup. 3. Thrombocytopenia. If active bleeding is suspected, platelet transfusion. If the cytopenia is secondary to liver disease, then observation is an option. 4. The patient has been getting blood transfusion as per the information available. 5. History of alcohol usage, history of smoking as per the patient. 6. History of hypertension. 7. History of diabetes. 8. History of gastroesophageal reflux disease. 9. The patient has had chest x-rays in the past. We will look into more investigations for her cytopenia and do transfusion support as needed. JOB# [id number] NM/NTS
--- NOTE | 2019-07-08 06:31 | Progress Note ---
Assessment and Plan Assessment and plan: Patient is a 69 yo woman with a history of hypertension, DM type 2, GERD and unspecific Anemia with recurrent blood transfusions who presents with AMS/difficulty arousing. Per the patient's daughter her mother had a blood transfusion a day prior to coming here at [facility] . She had some nausea and was given Phenergan and Benadryl. Since that time the daughter states her mom has been somnolent but arousable.Patient gets blood transfusions for recurrent anemia.Patient lethargic but easily arosable. patient's O2 sats dropped to 84% on room air. Daughter denies her mother using O2 at home. I d/w daughter, Theodora, who states patient has multiple myeloma and getting treatment from [facility] Oncologist. They went to the Oncologist infusion center to receive blood at which point patient was over sedated per daughter. * CXR IMPRESSION: 1. There is bilateral pulmonary edema and venous congestion. There is prominence the cardiac silhouette. * V/Q scan: Low prob for PE Acute hypoxice respiratory failure with p.edema: treated with iv lasix, check ECHO Acute metabolic encephalopathy HTN (hypertension), Cont antihypertensives T2DM (type 2 diabetes mellitus): SSI Coverage for now, Ceck A1c Pulmonary edema, suspect acute heart failure, diastolic: treat with iv lasix Pancytopenia with plt 24 and anemia: stat CMP, consulted Heme/Onc Severe thrombocytopenia: consulted Heme/onc UTI: on iv rocephin Elevated d-dimer, cr 1.8, get v/q scan, low probability for PE Coagulopathy and elevated transaminases: consulted GI Severe malnutrition: consult Hood Fitter Hypercalcemia: consulted Heme/Onc Hypernatremia: consulted Radio Broadcaster, on D5W Hypokalemia: replete and monitor cmp daily DVT prophylaxis: scd, no a/c due to coagulopathy GI prophylaxis: hold ppi/h2b due multisystem organ dysfunction full code Disposition: continue inpatient care, ECHO pending, GI evaluation pending, Ordered old records from [facility] oncologist Labs pending History Interval history: Patient was seen and examined. Follow-up on current diagnosis of AMS and hypoxic. No overnight events reported to me. Patient denies any chest pain, shortness breath, nausea/vomiting or severe headaches. Imaging, nursing note, chart, labs and old chart reviewed. Discussed with patient. Hospitalist Physical - Physical exam Narrative exam: Gen: WDWN, NAD, Awake, Alert, Orientated HEENT: NCAT, EOMI, PERRL, OP Clear Neck: supple, no adenopathy, no thyromegaly, no JVD CVS/Heart: RRR, normal S1S2, pulses present bilaterally Chest/Lungs: diminished B, Symmetrical chest expansion, good air entry bilaterally GI/Abdomen: soft, NTND, good bowel sounds, no guarding or rebound /Bladder: no suprapubic tenderness, no CVA or paraspinal tenderness Extermity/Skin: +ble leg edema, no obvious rash MSK: FROM x 4 Neuro: CN 2-12 grossly intact, no new focal deficits Psych: rude - Constitutional Vitals: Temp Pulse Resp BP Pulse Ox 98.2 F 73 16 153/87 95 07/08/19 05:02 07/08/19 05:02 07/08/19 05:02 07/08/19 05:02 07/08/19 05:02 General appearance: Present: no acute distress, well-nourished Results - Labs CBC & Chem 7: 07/07/19 06:56 07/07/19 07:04 Labs: Laboratory Last Values WBC 1.3 K/mm3 (4.5-11.0) L* 07/07/19 06:56 RBC 2.21 M/mm3 (3.65-5.03) L 07/07/19 06:56 Hgb 6.9 gm/dl (10.1-14.3) L 07/07/19 06:56 Hct 21.3 % (30.3-42.9) L 07/07/19 06:56 MCV 96 fl (79-97) 07/07/19 06:56 MCH 31 pg (28-32) 07/07/19 06:56 MCHC 33 % (30-34) 07/07/19 06:56 RDW 19.5 % (13.2-15.2) H 07/07/19 06:56 Plt Count 11 K/mm3 (140-440) L* 07/07/19 06:56 Lymph % (Auto) [employer] Assistant 07/06/19 12:51 [facility] % (Auto) [employer] Assistant 07/06/19 12:51 Eos % (Auto) [employer] Assistant 07/06/19 12:51 Baso % (Auto) [employer] Assistant 07/06/19 12:51 Lymph # [employer] Assistant 07/06/19 12:51 [facility] # [employer] Assistant 07/06/19 12:51 Eos # [employer] Assistant 07/06/19 12:51 Baso # [employer] Assistant 07/06/19 12:51 Add Manual Diff Complete 07/07/19 06:56 Total Counted 100 07/07/19 06:56 Seg Neutrophils % [employer] Assistant 07/06/19 12:51 Seg Neuts % (Manual) 85.0 % (40.0-70.0) H 07/07/19 06:56 0 % 07/07/19 06:56 13.0 % (13.4-35.0) L 07/07/19 06:56 Reactive Lymphs % (Man) 0 % 07/07/19 06:56 2.0 % (0.0-7.3) 07/07/19 06:56 0 % (0.0-4.3) 07/07/19 06:56 0 % (0.0-1.8) 07/07/19 06:56 0 % 07/07/19 06:56 0 % 07/07/19 06:56 0 % 07/07/19 06:56 0 % 07/07/19 06:56 Nucleated RBC % Not Reportable 07/07/19 06:56 Seg Neutrophils # [employer] Assistant 07/06/19 12:51 Seg Neutrophils # Man 0.0 K/mm3 (1.8-7.7) L 07/07/19 06:56 Band Neutrophils # 0.0 K/mm3 07/07/19 06:56 0.0 K/mm3 (1.2-5.4) L 07/07/19 06:56 Abs React Lymphs (Man) 0.0 K/mm3 07/07/19 06:56 0.0 K/mm3 (0.0-0.8) 07/07/19 06:56 0.0 K/mm3 (0.0-0.4) 07/07/19 06:56 0.0 K/mm3 (0.0-0.1) 07/07/19 06:56 0.0 K/mm3 07/07/19 06:56 0.0 K/mm3 07/07/19 06:56 0.0 K/mm3 07/07/19 06:56 Blast Cells # 0.0 K/mm3 07/07/19 06:56 WBC Morphology Not Reportable 07/07/19 06:56 Hypersegmented Neuts Not Reportable 07/07/19 06:56 Hyposegmented Neuts Not Reportable 07/07/19 06:56 Hypogranular Neuts Not Reportable 07/07/19 06:56 Not Reportable 07/07/19 06:56 Not Reportable 07/07/19 06:56 Not Reportable 07/07/19 06:56 Not Reportable 07/07/19 06:56 Not Reportable 07/07/19 06:56 Not Reportable 07/07/19 06:56 Consistent w auto 07/07/19 06:56 Not Reportable 07/07/19 06:56 Plt Clumps, EDTA Not Reportable 07/07/19 06:56 Not Reportable 07/07/19 06:56 Not Reportable 07/07/19 06:56 Not Reportable 07/07/19 06:56 Plt Morphology Comment Not Reportable 07/07/19 06:56 RBC Morphology Not Reportable 07/07/19 06:56 Dimorphic RBCs Not Reportable 07/07/19 06:56 Not Reportable 07/07/19 06:56 Not Reportable 07/07/19 06:56 Not Reportable 07/07/19 06:56 1+ 07/07/19 06:56 Not Reportable 07/07/19 06:56 Not Reportable 07/07/19 06:56 Not Reportable 07/07/19 06:56 Not Reportable 07/07/19 06:56 Not Reportable 07/07/19 06:56 Not Reportable 07/07/19 06:56 Not Reportable 07/07/19 06:56 Not Reportable 07/07/19 06:56 Not Reportable 07/07/19 06:56 Not Reportable 07/07/19 06:56 Not Reportable 07/07/19 06:56 Not Reportable 07/07/19 06:56 Not Reportable 07/07/19 06:56 Not Reportable 07/07/19 06:56 Not Reportable 07/07/19 06:56 Acanthocytes (Spur) Not Reportable 07/07/19 06:56 Rouleaux 1+ 07/07/19 06:56 Not Reportable 07/07/19 06:56 Not Reportable 07/07/19 06:56 Not Reportable 07/07/19 06:56 Not Reportable 07/07/19 06:56 Hem Pathologist Commnt No 07/07/19 06:56 PT 18.8 Sec. (12.2-14.9) H 07/06/19 07:18 INR 1.61 (0.87-1.13) H 07/06/19 07:18 APTT 42.4 Sec. (24.2-36.6) H 07/06/19 07:18 935.80 ng/mlDDU (0-234) H 07/06/19 07:18 POC ABG pH 7.427 (7.35-7.45) 07/06/19 05:24 POC ABG pCO2 31.7 (35-45) L 07/06/19 05:24 POC ABG pO2 59 (80-105) L 07/06/19 05:24 POC ABG HCO3 20.8 (22-26 mml/L) 07/06/19 05:24 POC ABG Total CO2 22 (23-27mmol/L) 07/06/19 05:24 POC ABG O2 Sat 91 07/06/19 05:24 POC ABG Base Excess -4 ((-2) - (+3)mmol/L) 07/06/19 05:24 21 % 07/06/19 05:24 Sodium 160 mmol/L (137-145) H 07/07/19 07:04 Potassium 3.0 mmol/L (3.6-5.0) L 07/07/19 07:04 Chloride 120 mmol/L (98-107) H 07/07/19 07:04 Carbon Dioxide 15 mmol/L (22-30) L 07/07/19 07:04 28 mmol/L 07/07/19 07:04 BUN 39 mg/dL (7-17) H 07/07/19 07:04 1.8 mg/dL (0.7-1.2) H 07/07/19 07:04 Estimated GFR 34 ml/min 07/07/19 07:04 22 % 07/07/19 07:04 Glucose 111 mg/dL (65-100) H 07/07/19 07:04 Calcium 6.6 mg/dL (8.4-10.2) L 07/07/19 07:04 0.60 mg/dL (0.1-1.2) 07/07/19 07:04 AST 303 units/L (5-40) H 07/07/19 07:04 ALT 342 units/L (7-56) H 07/07/19 07:04 42 units/L (35-129) 07/07/19 07:04 < 0.010 ng/mL (0.00-0.029) 07/07/19 07:04 NT-Pro-B Natriuret Pep 51288 pg/mL (0-900) H 07/07/19 07:04 9.2 g/dL (6.3-8.2) H 07/07/19 07:04 1.5 g/dL (3.9-5) L 07/07/19 07:04 0.2 % 07/07/19 07:04 Red (Yellow) 07/06/19 14:47 Cloudy (Clear) 07/06/19 14:47 5.0 (5.0-7.0) 07/06/19 14:47 Ur Specific [place] 1.013 (1.003-1.030) 07/06/19 14:47 100 mg/dl mg/dL (Negative) 07/06/19 14:47 Neg mg/dL (Negative) 07/06/19 14:47 Neg mg/dL (Negative) 07/06/19 14:47 Lg (Negative) 07/06/19 14:47 Neg (Negative) 07/06/19 14:47 Neg (Negative) 07/06/19 14:47 < 2.0 mg/dL (<2.0) 07/06/19 14:47 Ur Leukocyte Esterase Tr (Negative) 07/06/19 14:47 22.0 /HPF (0.0-6.0) H 07/06/19 14:47 > 182.0 /HPF (0.0-6.0) 07/06/19 14:47 U Epithel Cells (Auto) 1.0 /HPF (0-13.0) 07/06/19 14:47 2+ /HPF (Negative) 07/06/19 14:47 Few /HPF 07/06/19 14:47 3+ /HPF 07/06/19 14:47 Blood Type O POSITIVE 07/06/19 Unknown Antibody Screen Positive 07/06/19 Unknown Antibody Identification Negative 07/06/19 Unknown Crossmatch See Detail 07/06/19 Unknown Active Medications - Current Medications Current Medications: Generic Name Dose Route Start Last Admin Trade Name Tyrelq PRN Reason Stop Dose Admin Acetaminophen 650 mg 07/06/19 16:40 07/07/19 23:29 Tylenol PO 650 mg Q4H PRN Administration Pain MILD(1-3)/Fever >100.5/ALTMAN Albuterol/Ipratropium 1 ampul 07/06/19 20:00 07/07/19 20:38 Duoneb *Not For Prn Use* IH Not Given QIDRT JESUS Furosemide 40 mg 07/07/19 07:00 07/07/19 09:56 Lasix IV 40 mg Q24H JESUS Administration Ceftriaxone Sodium 1 gm in 50 mls @ 100 mls/hr 07/06/19 17:00 07/07/19 09:56 Rocephin/Ns 1 Gm/50 Ml IV 100 mls/hr Q24HR JESUS Administration Protocol Dextrose 1,000 mls @ 75 mls/hr 07/07/19 12:00 07/07/19 23:28 D5w IV 75 mls/hr DIRECT JESUS Administration Ondansetron HCl 4 mg 07/06/19 16:40 Zofran IV Q8H PRN Nausea And Vomiting Sodium Chloride 10 ml 07/06/19 22:00 07/07/19 22:12 Sodium Chloride Flush Syringe 10 Ml IV 10 ml BID JESUS Administration Sodium Chloride 10 ml 07/06/19 16:40 Sodium Chloride Flush Syringe 10 Ml IV PRN PRN LINE FLUSH
[2019-07-08] MEDS: LASIX IV SCH (06:39)
[2019-07-08] MEDS: DUONEB *Not for PRN Use IH SCH (07:04)
--- NOTE | 2019-07-08 07:26 | Hem/Onc Progress Note ---
Assessment and Plan 1. Anemia. MCV is not low. This may be secondary to abnormal liver function test and note there is a mention of question of multiple myeloma. We will try to get more information. At this time, the patient has pancytopenia. The calcium is not elevated; in fact, it is low. Creatinine is slightly abnormal. 2. Normocytic anemia. We will do deficiency workup. 3. Thrombocytopenia. If active bleeding is suspected, platelet transfusion. If the cytopenia is secondary to liver disease, then observation is an option. 4. The patient has been getting blood transfusion as per the information available. 5. History of alcohol usage ( LATER DENIED BY DAUGHTER) , history of smoking as per the patient. 6. History of hypertension. 7. History of diabetes. 8. History of gastroesophageal reflux disease. 9. The patient has had chest x-rays in the past. We will look into more investigations for her cytopenia and do transfusion support as needed. called dr pelletier - h/o hypercalcemia s/p 2 doses velcade some compliance issues s/p multiple transfusion no h/o alcohol usage GCSF trial d/w daughter todays labs pending - Patient Problems (1) Myeloma Current Visit: Yes Status: Acute Subjective Date of service: 07/08/19 Principal diagnosis: cytopenia Interval history: more awake - says was diagnosed with myeloma a few weeks ago Objective - Constitutional Vitals: Last Vital Signs Temp 98.2 F 07/08/19 05:02 Pulse 73 07/08/19 05:02 Resp 16 07/08/19 05:02 BP 153/87 07/08/19 05:02 Pulse Ox 95 07/08/19 07:05 - Labs Lab Results: Laboratory Results - last 24 hr 07/06/19 07/07/19 07/07/19 Unknown 06:56 07:04 WBC 1.3 L* RBC 2.21 L Hgb 6.9 L Hct 21.3 L MCV 96 MCH 31 MCHC 33 RDW 19.5 H Plt Count 11 L* Add Manual Diff Complete Total Counted 100 Seg Neuts % (Manual) 85.0 H Band Neutrophils % 0 Lymphocytes % (Manual) 13.0 L Reactive Lymphs % (Man) 0 Monocytes % (Manual) 2.0 Eosinophils % (Manual) 0 Basophils % (Manual) 0 Metamyelocytes % 0 Myelocytes % 0 Promyelocytes % 0 Blast Cells % 0 Nucleated RBC % Not Reportable Seg Neutrophils # Man 0.0 L Band Neutrophils # 0.0 Lymphocytes # (Manual) 0.0 L Abs React Lymphs (Man) 0.0 Monocytes # (Manual) 0.0 Eosinophils # (Manual) 0.0 Basophils # (Manual) 0.0 Metamyelocytes # 0.0 Myelocytes # 0.0 Promyelocytes # 0.0 Blast Cells # 0.0 WBC Morphology Not Reportable Hypersegmented Neuts Not Reportable Hyposegmented Neuts Not Reportable Hypogranular Neuts Not Reportable Smudge Cells Not Reportable Toxic Granulation Not Reportable Toxic Vacuolation Not Reportable Dohle Bodies Not Reportable Pelger-Huet Anomaly Not Reportable [place]aya Rods Not Reportable Platelet Estimate Consistent w auto Clumped Platelets Not Reportable Plt Clumps, EDTA Not Reportable Large Platelets Not Reportable Giant Platelets Not Reportable Platelet Satelliting Not Reportable Plt Morphology Comment Not Reportable RBC Morphology Not Reportable Dimorphic RBCs Not Reportable Polychromasia Not Reportable Hypochromasia Not Reportable Poikilocytosis Not Reportable Anisocytosis 1+ Microcytosis Not Reportable Macrocytosis Not Reportable Spherocytes Not Reportable Pappenheimer Bodies Not Reportable Sickle Cells Not Reportable Target Cells Not Reportable Tear Drop Cells Not Reportable Ovalocytes Not Reportable Helmet Cells Not Reportable Nieves-[place]ant[place] Bodies Not Reportable [place] Rings Not Reportable [place] Cells Not Reportable Bite Cells Not Reportable Crenated Cell Not Reportable Elliptocytes Not Reportable Acanthocytes (Spur) Not Reportable Rouleaux 1+ Hemoglobin C Crystals Not Reportable Schistocytes Not Reportable Malaria parasites Not Reportable Yobany Bodies Not Reportable Hem Pathologist Commnt No Sodium 160 H Potassium 3.0 L Chloride 120 H Carbon Dioxide 15 L Anion Gap 28 BUN 39 H Creatinine 1.8 H Estimated GFR 34 BUN/Creatinine Ratio 22 Glucose 111 H Calcium 6.6 L Total Bilirubin 0.60 AST 303 H ALT 342 H Alkaline Phosphatase 42 Troponin T < 0.010 NT-Pro-B Natriuret Pep 66746 H Total Protein 9.2 H Albumin 1.5 L Albumin/Globulin Ratio 0.2 Blood Type O POSITIVE Antibody Screen Positive Antibody Identification Negative Crossmatch See Detail Medications & Allergies - Medications Allergies/Adverse Reactions: Allergies No Known Allergies Allergy (Verified 07/26/14 22:47) Home Medications: Home Medications Medication Instructions Recorded Confirmed Last Taken Type Aspirin [Adult Low Dose Aspirin EC] 81 mg PO DAILY 11/16/15 07/06/19 12/09/15 History 81mg Losartan [Cozaar] 100 mg PO QDAY 11/16/15 07/06/19 12/09/15 History 100mg Multivit-Min/FA/Lycopen/Lutein 1 tab PO DAILY 11/16/15 07/06/19 12/07/15 History [Centrum Silver Tablet] 1 tab [place]-3/Dha/Epa/Fish Oil [Fish Oil 1 tab PO DAILY 11/16/15 07/06/19 12/09/15 History [place]-3 EC 1,200 mg] 1 tab Vit D3/Folic Acid/B2/B6/B12 1 tab PO DAILY 11/16/15 07/06/19 12/09/15 History [Folgard Tablet] 1 tab amLODIPine [Norvasc] 5 mg PO DAILY 11/16/15 07/06/19 12/09/15 History 5mg Active Medications: Generic Name Dose Route Start Last Admin Trade Name Freq PRN Reason Stop Dose Admin Acetaminophen 650 mg 07/06/19 16:40 07/07/19 23:29 Tylenol PO 650 mg Q4H PRN Administration Pain MILD(1-3)/Fever >100.5/ALTMAN Albuterol/Ipratropium 1 ampul 07/06/19 20:00 07/08/19 07:04 Duoneb *Not For Prn Use* IH Not Given QIDRT JESUS Amlodipine Besylate 5 mg 07/08/19 10:00 Norvasc PO DAILY JESUS Furosemide 40 mg 07/07/19 07:00 07/08/19 06:39 Lasix IV 40 mg Q24H JESUS Administration Ceftriaxone Sodium 1 gm in 50 mls @ 100 mls/hr 07/06/19 17:00 07/07/19 09:56 Rocephin/Ns 1 Gm/50 Ml IV 100 mls/hr Q24HR JESUS Administration Protocol Dextrose 1,000 mls @ 75 mls/hr 07/07/19 12:00 07/07/19 23:28 D5w IV 75 mls/hr DIRECT JESUS Administration Ondansetron HCl 4 mg 07/06/19 16:40 Zofran IV Q8H PRN Nausea And Vomiting Sodium Chloride 10 ml 07/06/19 22:00 07/07/19 22:12 Sodium Chloride Flush Syringe 10 Ml IV 10 ml BID JESUS Administration Sodium Chloride 10 ml 07/06/19 16:40 Sodium Chloride Flush Syringe 10 Ml IV PRN PRN LINE FLUSH
[2019-07-08 07:34] LABS: Hematocrit 22.9 % (30.3-42.9); Hemoglobin 7.5 gm/dl (10.1-14.3); Mean Corpuscular HGB Conc 33 % (30-34); Mean Corpuscular Volume 97 fl (79-97); Red Blood Count 2.36 M/mm3 (3.65-5.03); Red Cell Distribution Width 18.9 % (13.2-15.2)
[2019-07-08 07:49] VITALS: BP 148/81
[2019-07-08] MEDS ORDERED: PROVENTIL IH PRN (08:31)
[2019-07-08 09:48] LABS: Platelet Count 25 K/mm3 (140-440)
[2019-07-08] MEDS ORDERED: NORVASC PO SCH (10:00)
[2019-07-08] MEDS ORDERED: GRANIX SUB-Q SCH (10:00)
--- NOTE | 2019-07-08 10:06 | Progress Note ---
Subjective Date of service: 07/08/19 Principal diagnosis: cytopenia Objective - Vital Signs Vital signs: Vital Signs - 12hr 07/08/19 07/08/19 07/08/19 00:25 00:41 01:47 Temperature 97.4 F L 97.7 F Pulse Rate 71 73 Respiratory 16 16 18 Rate Blood Pressure 112/59 138/72 O2 Sat by Pulse 92 93 Oximetry 07/08/19 07/08/19 07/08/19 02:02 02:32 03:02 Temperature 97.8 F 97.7 F 97.8 F Pulse Rate 70 70 68 Respiratory 16 16 16 Rate Blood Pressure 144/89 141/99 143/98 O2 Sat by Pulse 94 95 97 Oximetry 07/08/19 07/08/19 07/08/19 03:32 03:35 04:02 Temperature 97.8 F 97.6 F Pulse Rate 71 73 Respiratory 16 16 Rate Blood Pressure 156/87 151/96 O2 Sat by Pulse 97 96 Oximetry 07/08/19 07/08/19 07/08/19 04:32 05:02 07:05 Temperature 97.8 F 98.2 F Pulse Rate 72 73 Respiratory 16 16 Rate Blood Pressure 150/87 153/87 O2 Sat by Pulse 96 95 95 Oximetry 07/08/19 07:31 Temperature 97.7 F Pulse Rate 73 Respiratory 18 Rate Blood Pressure 148/81 O2 Sat by Pulse 94 Oximetry - Lab 07/08/19 05:58 07/07/19 07:04 Most recent lab results Calcium 6.6 mg/dL (8.4-10.2) L 07/07/19 07:04 Medications & Allergies - Medications Allergies/Adverse Reactions: Allergies No Known Allergies Allergy (Verified 07/26/14 22:47) Home Medications: Home Medications Medication Instructions Recorded Confirmed Last Taken Type Aspirin [Adult Low Dose Aspirin EC] 81 mg PO DAILY 11/16/15 07/06/19 12/09/15 History 81mg Losartan [Cozaar] 100 mg PO QDAY 11/16/15 07/06/19 12/09/15 History 100mg Multivit-Min/FA/Lycopen/Lutein 1 tab PO DAILY 11/16/15 07/06/19 12/07/15 History [Centrum Silver Tablet] 1 tab [place]-3/Dha/Epa/Fish Oil [Fish Oil 1 tab PO DAILY 11/16/15 07/06/19 12/09/15 History [place]-3 EC 1,200 mg] 1 tab Vit D3/Folic Acid/B2/B6/B12 1 tab PO DAILY 11/16/15 07/06/19 12/09/15 History [Folgard Tablet] 1 tab amLODIPine [Norvasc] 5 mg PO DAILY 11/16/15 07/06/19 12/09/15 History 5mg Active Medications: Generic Name Dose Route Start Last Admin Trade Name Freq PRN Reason Stop Dose Admin Acetaminophen 650 mg 07/06/19 16:40 07/07/19 23:29 Tylenol PO 650 mg Q4H PRN Administration Pain MILD(1-3)/Fever >100.5/ALTMAN Albuterol 2.5 mg 07/08/19 08:31 Proventil IH Q4HRT PRN Shortness Of Breath Amlodipine Besylate 5 mg 07/08/19 10:00 Norvasc PO DAILY JESUS Furosemide 40 mg 07/07/19 07:00 07/08/19 06:39 Lasix IV 40 mg Q24H JESUS Administration Ceftriaxone Sodium 1 gm in 50 mls @ 100 mls/hr 07/06/19 17:00 07/07/19 09:56 Rocephin/Ns 1 Gm/50 Ml IV 100 mls/hr Q24HR JESUS Administration Protocol Dextrose 1,000 mls @ 75 mls/hr 07/07/19 12:00 07/07/19 23:28 D5w IV 75 mls/hr DIRECT JESUS Administration Ondansetron HCl 4 mg 07/06/19 16:40 Zofran IV Q8H PRN Nausea And Vomiting Sodium Chloride 10 ml 07/06/19 22:00 07/07/19 22:12 Sodium Chloride Flush Syringe 10 Ml IV 10 ml BID JESUS Administration Sodium Chloride 10 ml 07/06/19 16:40 Sodium Chloride Flush Syringe 10 Ml IV PRN PRN LINE FLUSH Tbo-Filgrastim 480 mcg 07/08/19 10:00 Granix SUB-Q 07/12/19 23:59 DAILY JESUS
[2019-07-08] MEDS: ROCEPHIN/NS 1 GM/50 ML 1 GM/50 ML BAG IV SCH (10:20)
[2019-07-08] MEDS: SODIUM CHLORIDE FLUSH SYRINGE 10 ML IV SCH (10:21)
--- NOTE | 2019-07-08 10:25 | Gastroenterology Consultation ---
History of Present Illness - Reason for Consult Consult date: 07/08/19 evaluate for liver failure Requesting physician: MEKHI MOHAN - History of Present Illness Patient is a 69 y/o female with PMH of HTN, DM, GERD, and recent diagnosis of multiple myeloma (followed by Dr. Cole; currently receiving chemo w/ Velcade) complicated with anemia requiring frequent transfusions and pancytopenia who was brought to ED for evaluation of AMS/difficulty arousing after being given Phenergan and Benadryl during a blood transfusion 07/05/19 at [facility]. Upon admission, LFTs were found to be elevated to which GI has been consulted. This morning patient was sitting on the side of the bed w/o acute distress and noted to alert and oriented. She is currently w/o GI complaints. Denies abd pain, N/v, jaundice, or signs of bleeding. Has no hx or Fhx of liver disease. No ETOH abuse (may drink 1 alcoholic beverage every couple of months per pt) or IV drug use. Does not take any [id number] herbal supplements. Past History Past Medical History: other (as per HPI) Past Surgical History: hysterectomy Social history: denies: smoking, alcohol abuse Family history: hypertension Medications and Allergies Allergies Allergy/AdvReac Type Severity Reaction Status Date / Time No Known Allergies Allergy Verified 07/26/14 22:47 Home Medications Medication Instructions Recorded Confirmed Last Taken Type Aspirin [Adult Low Dose Aspirin EC] 81 mg PO DAILY 11/16/15 07/06/19 12/09/15 History 81mg Losartan [Cozaar] 100 mg PO QDAY 11/16/15 07/06/19 12/09/15 History 100mg Multivit-Min/FA/Lycopen/Lutein 1 tab PO DAILY 11/16/15 07/06/19 12/07/15 History [Centrum Silver Tablet] 1 tab Rogers-3/Dha/Epa/Fish Oil [Fish Oil 1 tab PO DAILY 11/16/15 07/06/19 12/09/15 History Rogers-3 EC 1,200 mg] 1 tab Vit D3/Folic Acid/B2/B6/B12 1 tab PO DAILY 11/16/15 07/06/19 12/09/15 History [Folgard Tablet] 1 tab amLODIPine [Norvasc] 5 mg PO DAILY 11/16/15 07/06/19 12/09/15 History 5mg Active Meds: Active Medications Acetaminophen (Tylenol) 650 mg PO Q4H PRN PRN Reason: Pain MILD(1-3)/Fever >100.5/ALTMAN Last Admin: 07/07/19 23:29 Dose: 650 mg Documented by: Albuterol (Proventil) 2.5 mg IH Q4HRT PRN PRN Reason: Shortness Of Breath Amlodipine Besylate (Norvasc) 5 mg PO DAILY [facility] Last Admin: 07/08/19 10:20 Dose: 5 mg Documented by: Furosemide (Lasix) 40 mg IV Q24H JESUS Last Admin: 07/08/19 06:39 Dose: 40 mg Documented by: Ceftriaxone Sodium (Rocephin/Ns 1 Gm/50 Ml) 1 gm in 50 mls @ 100 mls/hr IV Q24HR [facility]; Protocol Last Admin: 07/08/19 10:20 Dose: 100 mls/hr Documented by: Dextrose (D5w) 1,000 mls @ 75 mls/hr IV DIRECT [facility] Last Admin: 07/07/19 23:28 Dose: 75 mls/hr Documented by: Ondansetron HCl (Zofran) 4 mg IV Q8H PRN PRN Reason: Nausea And Vomiting Sodium Chloride (Sodium Chloride Flush Syringe 10 Ml) 10 ml IV BID [facility] Last Admin: 07/08/19 10:21 Dose: 10 ml Documented by: Sodium Chloride (Sodium Chloride Flush Syringe 10 Ml) 10 ml IV PRN PRN PRN Reason: LINE FLUSH Tbo-Filgrastim (Granix) 480 mcg SUB-Q DAILY [facility] Stop: 07/12/19 23:59 medications reviewed/updated as required Review of Systems - Review of Systems All systems: negative Gastrointestinal: no abdominal pain, no nausea, no vomiting Exam - Constitutional Vital Signs: Temp Pulse Resp BP Pulse Ox 97.7 F 73 18 148/81 94 07/08/19 07:31 07/08/19 10:20 07/08/19 07:31 07/08/19 10:20 07/08/19 07:31 General appearance: no acute distress - EENT Eyes: PERRL, EOM intact ENT: hearing intact - Respiratory Respiratory effort: normal - Cardiovascular Rhythm: regular - Gastrointestinal General gastrointestinal: Present: soft, non-tender, non-distended, normal bowel sounds - Neurologic Neurological: alert and oriented x3 - Labs CBC & Chem 7: 07/08/19 05:58 07/07/19 07:04 Lab Results: Laboratory Results - last 24 hr 07/06/19 07/07/19 07/07/19 Unknown 06:56 07:04 WBC 1.3 L* RBC Hgb Hct MCV MCH MCHC RDW Plt Count 11 L* Add Manual Diff Complete Total Counted 100 Seg Neuts % (Manual) 85.0 H Band Neutrophils % 0 Lymphocytes % (Manual) 13.0 L Reactive Lymphs % (Man) 0 Monocytes % (Manual) 2.0 Eosinophils % (Manual) 0 Basophils % (Manual) 0 Metamyelocytes % 0 Myelocytes % 0 Promyelocytes % 0 Blast Cells % 0 Nucleated RBC % Not Reportable Seg Neutrophils # Man 0.0 L Band Neutrophils # 0.0 Lymphocytes # (Manual) 0.0 L Abs React Lymphs (Man) 0.0 Monocytes # (Manual) 0.0 Eosinophils # (Manual) 0.0 Basophils # (Manual) 0.0 Metamyelocytes # 0.0 Myelocytes # 0.0 Promyelocytes # 0.0 Blast Cells # 0.0 WBC Morphology Not Reportable Hypersegmented Neuts Not Reportable Hyposegmented Neuts Not Reportable Hypogranular Neuts Not Reportable Smudge Cells Not Reportable Toxic Granulation Not Reportable Toxic Vacuolation Not Reportable Dohle Bodies Not Reportable Pelger-Huet Anomaly Not Reportable Anaya Rods Not Reportable Platelet Estimate Consistent w auto Clumped Platelets Not Reportable Plt Clumps, EDTA Not Reportable Large Platelets Not Reportable Giant Platelets Not Reportable Platelet Satelliting Not Reportable Plt Morphology Comment Not Reportable RBC Morphology Not Reportable Dimorphic RBCs Not Reportable Polychromasia Not Reportable Hypochromasia Not Reportable Poikilocytosis Not Reportable Anisocytosis 1+ Microcytosis Not Reportable Macrocytosis Not Reportable Spherocytes Not Reportable Pappenheimer Bodies Not Reportable Sickle Cells Not Reportable Target Cells Not Reportable Tear Drop Cells Not Reportable Ovalocytes Not Reportable Helmet Cells Not Reportable Nieves-Marenisco Bodies Not Reportable [place] Rings Not Reportable Sulphur Cells Not Reportable Bite Cells Not Reportable Crenated Cell Not Reportable Elliptocytes Not Reportable Acanthocytes (Spur) Not Reportable Rouleaux 1+ Hemoglobin C Crystals Not Reportable Schistocytes Not Reportable Malaria parasites Not Reportable Yobany Bodies Not Reportable Hem Pathologist Commnt No Sodium 160 H Potassium 3.0 L Chloride 120 H Carbon Dioxide 15 L Anion Gap 28 BUN 39 H Creatinine 1.8 H Estimated GFR 34 BUN/Creatinine Ratio 22 Glucose 111 H Calcium 6.6 L Total Bilirubin 0.60 AST 303 H ALT 342 H Alkaline Phosphatase 42 Troponin T < 0.010 NT-Pro-B Natriuret Pep 97171 H Total Protein 9.2 H Albumin 1.5 L Albumin/Globulin Ratio 0.2 Blood Type O POSITIVE Antibody Screen Positive Antibody Identification Negative Crossmatch See Detail 07/08/19 05:58 WBC 5.3 RBC 2.36 L Hgb 7.5 L Hct 22.9 L MCV 97 MCH 32 MCHC 33 RDW 18.9 H Plt Count 25 L D Add Manual Diff Total Counted Seg Neuts % (Manual) Band Neutrophils % Lymphocytes % (Manual) Reactive Lymphs % (Man) Monocytes % (Manual) Eosinophils % (Manual) Basophils % (Manual) Metamyelocytes % Myelocytes % Promyelocytes % Blast Cells % Nucleated RBC % Seg Neutrophils # Man Band Neutrophils # Lymphocytes # (Manual) Abs React Lymphs (Man) Monocytes # (Manual) Eosinophils # (Manual) Basophils # (Manual) Metamyelocytes # Myelocytes # Promyelocytes # Blast Cells # WBC Morphology Hypersegmented Neuts Hyposegmented Neuts Hypogranular Neuts Smudge Cells Toxic Granulation Toxic Vacuolation Dohle Bodies Pelger-Huet Anomaly Anaya Rods Platelet Estimate Clumped Platelets Plt Clumps, EDTA Large Platelets Giant Platelets Platelet Satelliting Plt Morphology Comment RBC Morphology Dimorphic RBCs Polychromasia Hypochromasia Poikilocytosis Anisocytosis Microcytosis Macrocytosis Spherocytes Pappenheimer Bodies Sickle Cells Target Cells Tear Drop Cells Ovalocytes Helmet Cells Nieves-Marenisco Bodies [place] Rings Geovany Cells Bite Cells Crenated Cell Elliptocytes Acanthocytes (Spur) Rouleaux Hemoglobin C Crystals Schistocytes Malaria parasites Yobany Bodies Hem Pathologist Commnt Sodium Potassium Chloride Carbon Dioxide Anion Gap BUN Creatinine Estimated GFR BUN/Creatinine Ratio Glucose Calcium Total Bilirubin AST ALT Alkaline Phosphatase Troponin T NT-Pro-B Natriuret Pep Total Protein Albumin Albumin/Globulin Ratio Blood Type Antibody Screen Antibody Identification Crossmatch Assessment and Plan 1.elevated LFTs -INR 1.61 -AST 303, ALT 342 (T.dinesh and alk phos WNL) -etiology unclear- possibly medication induced (recently started on Velcade) vs other -clinically, patient is w/o GI complaints. Denies abd pain or N/V. Encephalopathy now improved (A&O this am upon exam). -will order acute hepatitis panel and abd U/S to further evaluate liver -avoid hepatotoxic agents -continue to trend labs and supportive care -will follow 2.multiple myeloma -recently dx and started on Velcade (followed by Dr. Nance in [place]) -complicated by chronic anemia requiring multiple blood transfusions and pancytopenia -hematology following
[2019-07-08 11:28] LABS: Rouleaux 3+
--- NOTE | 2019-07-08 12:58 | Discharge Summary ---
Providers - Providers Date of Admission: 07/06/19 16:40 Date of discharge: 07/08/19 Attending physician: MEKHI MOHAN 07/07/19 07:33 Consult to Physician [CONS] Routine Comment: spoke to dr. sanders/ ashely Consulting Provider: MARYANN SANDERS Physician Instructions: Reason For Exam: pancytopenia, plt 24 07/07/19 11:01 Consult to Physician [CONS] Routine Comment: Consulting Provider: CARMEN CUMMINS Physician Instructions: Reason For Exam: hypernatremia 07/08/19 06:25 Consult to Physician [CONS] Routine Comment: Consulting Provider: MIKEY MURGUIA Physician Instructions: Reason For Exam: evaluate for Liver failure Primary care physician: AIRCRAFT QUALITY CONTROL INSPECTOR Hospitalization Condition: Stable Hospital course: Patient is a 69 yo woman with a history of hypertension, DM type 2, GERD and unspecific Anemia with recurrent blood transfusions who presents with AMS/difficulty arousing. Per the patient's daughter her mother had a blood transfusion a day prior to coming here at [facility] . She had some nausea and was given Phenergan and Benadryl. Since that time the daughter states her mom has been somnolent but arousable.Patient gets blood transfusions for recurrent anemia.Patient lethargic but easily arosable. patient's O2 sats dropped to 84% on room air. Daughter denies her mother using O2 at home. I d/w daughter, Theodora, who states patient has multiple myeloma and getting treatment from [facility] Oncologist. They went to the Oncologist infusion center to receive blood at which point patient was over sedated per daughter. * CXR IMPRESSION: 1. There is bilateral pulmonary edema and venous congestion. There is prominence the cardiac silhouette. 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 Hypercalcemia: consulted Heme/Onc Hypernatremia: consulted 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, on D5W Hypokalemia: replete and monitor cmp daily DVT prophylaxis: scd, no a/c due to coagulopathy GI prophylaxis: hold ppi/h2b due multisystem organ dysfunction full code Disposition: continue inpatient care, ECHO pending, GI evaluation pending, Ordered old records from [facility] oncologist Labs pending Disposition: DC- LEFT AGAINST MED ADVICE Time spent for discharge: 34 minutes Core Measure Documentation - Palliative Care Palliative Care/ Comfort Measures: Not Applicable - Core Measures Any of the following diagnoses?: none - VTE Discharge Requirements Deep Vein Thrombosis/Pulmonary Embolism Present on Admission: No Has pt received <5 days of overlap therapy or INR<2.0: No Anticoagulant overlap therapy prescribed at discharge: No Contraindication No Overlap Therapy order at DC: Not Indicated Exam - Physical Exam Narrative exam: Gen: WDWN, NAD, Awake, Alert, Orientated HEENT: NCAT, EOMI, PERRL, OP Clear Neck: supple, no adenopathy, no thyromegaly, no JVD CVS/Heart: RRR, normal S1S2, pulses present bilaterally Chest/Lungs: diminished B, Symmetrical chest expansion, good air entry bilaterally GI/Abdomen: soft, NTND, good bowel sounds, no guarding or rebound /Bladder: no suprapubic tenderness, no CVA or paraspinal tenderness Extermity/Skin: +ble leg edema, no obvious rash MSK: FROM x 4 Neuro: CN 2-12 grossly intact, no new focal deficits Psych: rude - Constitutional Vitals: Temp Pulse Resp BP Pulse Ox 97.7 F 73 18 148/81 94 07/08/19 07:31 07/08/19 10:20 07/08/19 07:31 07/08/19 10:20 07/08/19 10:00 Plan Follow up with: PRIMARY MD JANIA [Primary Care Provider] - 3-5 Days
== END 2019-07-08 11:30 | disposition left against medical advice (07) | DRG 91 ==
LOC: ED 03:29 → 2B-ACE 16:40
PROVIDERS: ADMIT Internal Medicine; ATTEND Internal Medicine
PROC: 4A033R1 Measurement of Arterial Saturation, Peripheral, Percutaneous Approach (ICD-10-PCS; 2019-07-06)
PROC: 3E0234Z Introduction of Serum, Toxoid and Vaccine into Muscle, Percutaneous Approach (ICD-10-PCS; 2019-07-07)
PROC: 30233N1 Transfusion of Nonautologous Red Blood Cells into Peripheral Vein, Percutaneous Approach (ICD-10-PCS; principal; 2019-07-08)
DX: G92 Toxic encephalopathy (principal); E43 Unspecified severe protein-calorie malnutrition; J96.01 Acute respiratory failure with hypoxia; I50.31 Acute diastolic (congestive) heart failure; N39.0 Urinary tract infection, site not specified; E87.0 Hyperosmolality and hypernatremia; D68.9 Coagulation defect, unspecified; D61.818 Other pancytopenia; C90.00 Multiple myeloma not having achieved remission; I11.0 Hypertensive heart disease with heart failure; E87.6 Hypokalemia; Z53.21 Procedure and treatment not carried out due to patient leaving prior to being seen by health care provider; E83.52 Hypercalcemia; K21.9 Gastro-esophageal reflux disease without esophagitis; I87.8 Other specified disorders of veins; T42.6X5A Adverse effect of other antiepileptic and sedative-hypnotic drugs, initial encounter; T45.0X5A Adverse effect of antiallergic and antiemetic drugs, initial encounter; Z90.711 Acquired absence of uterus with remaining cervical stump; Z79.82 Long term (current) use of aspirin; Z79.899 Other long term (current) drug therapy; Z82.49 Family history of ischemic heart disease and other diseases of the circulatory system; Y92.098 Other place in other non-institutional residence as the place of occurrence of the external cause; Z68.28 Body mass index [BMI] 28.0-28.9, adult; Z79.84 Long term (current) use of oral hypoglycemic drugs; Z23 Encounter for immunization
CPT/HCPCS: 36415; 70450; 71045; 78582; 80053; 81001; 82803; 83880; 84484; 85007; 85025; 85027; 85379; 85610; 85730; 86850; 86870; 86900; 86901; 86920; 87086; 90732; 93306; 94640; 94760; G0378; A9540; A9558; J0696; J1447; J1940; J7040; J7042; J7070; P9016